=== PATIENT | male | born 1955 | race Caucasian/White ===

== ENCOUNTER 2017-04-15 19:15 | Inpatient (IN) | payer OTHER ==
[2017-04-15] MEDS ORDERED: LIPITOR40 M1 PO (19:32)
[2017-04-15] MEDS ORDERED: LISINOPRIL40 M1 PO (19:33)
[2017-04-15] MEDS ORDERED: GLUCOPHAGE1000 M1 PO (19:34)
[2017-04-15] MEDS ORDERED: HYDROCHLOROTHIA25 M1 PO (19:34)
[2017-04-15] MEDS ORDERED: COREG25 M1 PO (19:35)
[2017-04-15] MEDS ORDERED: GLIPIZIDE5 M2 PO (19:35)
[2017-04-15 20:07] LABS: BASO % 0.4 % (0-2); EOS % 1.4 % (0-7); EOSINOPHIL ABSOLUTE COUNT 0.1 tho/cmm (0.0-0.7); HCT-HEMATOCRIT 44.7 % (36.0-53.5); HGB-HEMOGLOBIN 16.1 gm/dl (13.5-17.0); IMMATURE GRANULOCYTES ABSOLUTE 0.02 tho/cmm (0-0.03); IMMATURE GRANULOCYTES PERCENT 0.2 % (0-0.3); LYMPH ABSOLUTE COUNT 2.8 tho/cmm (0.8-4.5); MCH (MEAN CORPUSCULAR HGB) 30.3 pg (28.0-32.0); MCV (MEAN CELL VOLUME) 84.2 fl (82.0-96.0); MEAN PLATELET VOLUME 10.1 cmc (9.4-12.4); MONO % 7.8 % (0-12); MONOCYTE ABSOLUTE COUNT 0.8 tho/cmm (0.0-1.2); NEUTROPHIL ABSOLUTE COUNT 5.9 tho/cmm (1.6-8.0); NEUTROPHIL-AUTOMATED 5.9 tho/cmm (1.6-8.0); NEUTROPHILS % 61.2 % (40-80); PLATELET COUNT 269 tho/cmm (150-450); RED BLOOD COUNT 5.31 mil/cmm (4.40-5.70); RED CELL DISTRIBUTION WIDTH 13.4 % (12.4-16.4); WHITE BLOOD COUNT 9.7 tho/cmm (4.0-10.0)
[2017-04-15 20:09] LABS: INR 0.8 INR (0.9-1.1); PROTHROMBIN TIME 9.7 SECONDS (9.0-13.6)
[2017-04-15 20:18] LABS: BLOOD UREA NITROGEN 32 mg/dl (6-24); CARBON DIOXIDE-VENOUS 21 mmol/L (22-32); CHLORIDE 95 mmol/l (96-110); CREATININE 1.52 mg/dl (0.60-1.30); SODIUM 132 mmol/L (135-145); eGFR VALUE FOR BLACK 56 mL/Min
[2017-04-15] MEDS ORDERED: MULTIVITAMINS1 EAC6 PO (20:19)
[2017-04-15 20:24] LABS: ANION GAP 21 mmol/L (0-20); POTASSIUM 4.7 mmol/L (3.7-5.1)
[2017-04-15 20:25] LABS: GLUCOSE 512 mg/dL (70-110)
[2017-04-15 23:01] LABS: URINE TOTAL PROTEIN-RANDOM 10.5 mg/dl (<11.8)
[2017-04-15 23:54] LABS: URINE PRT/CR RATIO 0.24 Ratio (0.0-0.20)
[2017-04-16 03:48] LABS: INR 0.9 INR (0.9-1.1); PROTHROMBIN TIME 10.6 SECONDS (9.0-13.6)
[2017-04-16 04:00] LABS: ALB/GLOB RATIO 1.1 (0.8-2.0); ALBUMIN 3.7 g/dl (3.5-5.0); ALKALINE PHOSPHATASE 92 U/L (33-138); ALT/SGPT 37 U/L (12-78); AST/SGOT 20 U/L (10-40); BILIRUBIN,TOTAL 0.3 mg/dl (0.0-1.5); BLOOD UREA NITROGEN 24 mg/dl (6-24); CALCIUM 8.6 mg/dl (8.5-10.5); CARBON DIOXIDE-VENOUS 25 mmol/L (22-32); CHLORIDE 108 mmol/l (96-110); CREATININE 0.87 mg/dl (0.60-1.30); MAGNESIUM 2.1 mg/dl (1.8-2.6); PHOSPHOROUS 3.1 mg/dl (2.5-4.9); SODIUM 143 mmol/L (135-145); eGFR VALUE FOR BLACK >90 mL/Min
[2017-04-16 04:07] LABS: ANION GAP 13 mmol/L (0-20); GLUCOSE 155 mg/dL (70-110)
[2017-04-16 04:08] LABS: POTASSIUM 3.2 mmol/L (3.7-5.1)
[2017-04-16 04:45] LABS: PARTIAL THROMBOPLASTIN TIME 40 SECONDS (22-36)
[2017-04-16 09:00] LABS: ANION GAP 12 mmol/L (0-20); BLOOD UREA NITROGEN 20 mg/dl (6-24); CARBON DIOXIDE-VENOUS 26 mmol/L (22-32); CHLORIDE 107 mmol/l (96-110); CREATININE 0.91 mg/dl (0.60-1.30); GLUCOSE 115 mg/dL (70-110); POTASSIUM 3.4 mmol/L (3.7-5.1); SODIUM 142 mmol/L (135-145); eGFR VALUE FOR BLACK >90 mL/Min
[2017-04-16 10:38] LABS: BASO % 0.5 % (0-2); EOS % 3.5 % (0-7); EOSINOPHIL ABSOLUTE COUNT 0.3 tho/cmm (0.0-0.7); HCT-HEMATOCRIT 39.7 % (36.0-53.5); HGB-HEMOGLOBIN 13.9 gm/dl (13.5-17.0); IMMATURE GRANULOCYTES ABSOLUTE 0.03 tho/cmm (0-0.03); IMMATURE GRANULOCYTES PERCENT 0.4 % (0-0.3); LYMPH % 48.8 % (20-45); LYMPH ABSOLUTE COUNT 3.8 tho/cmm (0.8-4.5); MCV (MEAN CELL VOLUME) 85.6 fl (82.0-96.0); MEAN PLATELET VOLUME 10.1 cmc (9.4-12.4); MONO % 8.4 % (0-12); MONOCYTE ABSOLUTE COUNT 0.7 tho/cmm (0.0-1.2); NEUTROPHILS % 38.4 % (40-80); PLATELET COUNT 223 tho/cmm (150-450); RED BLOOD COUNT 4.64 mil/cmm (4.40-5.70); RED CELL DISTRIBUTION WIDTH 13.8 % (12.4-16.4); WHITE BLOOD COUNT 7.7 tho/cmm (4.0-10.0)
[2017-04-16 11:24] LABS: OSMOLALITY 294 mOsm/kg (275-295)
[2017-04-16 11:30] LABS: BLOOD UREA NITROGEN 19 mg/dl (6-24); CALCIUM 8.3 mg/dl (8.5-10.5); CARBON DIOXIDE-VENOUS 26 mmol/L (22-32); CHLORIDE 105 mmol/l (96-110); CREATININE 0.94 mg/dl (0.60-1.30); PHOSPHOROUS 3.1 mg/dl (2.5-4.9); SODIUM 140 mmol/L (135-145); eGFR VALUE FOR BLACK >90 mL/Min
[2017-04-16 11:43] LABS: ANION GAP 13 mmol/L (0-20); GLUCOSE 207 mg/dL (70-110); MAGNESIUM 2.1 mg/dl (1.8-2.6); POTASSIUM 4.2 mmol/L (3.7-5.1)
--- NOTE | 2017-04-16 11:52 | NUR ---
PATIENT C/O N/T IN LEFT FOOT. ABLE TO DOPPLER DORSAL PULSE. PEDAL PULSE NOT ABLE TO DOPPLER. KNITTING TESTER NOTIFIED.
--- NOTE | 2017-04-16 13:20 | NUR ---
PATIENT DOWN TO IR FOR AORTOGRAM
--- NOTE | 2017-04-16 16:46 | NUR ---
RADIOLOGY NURSE CALLED THIS RN, THEY ARE WAITING FOR PHARMACY TO SEND TPA BACK UP TO PROCEDURE ROOM AND THEN THE PATIETN WILL BE BACK UP TO FLOOR
--- NOTE | 2017-04-16 16:46 | NUR ---
CALLED FREELANCE OPERATOR. PATIENT IS STILL IN PROCEDURE. THEY ARE TREATING WITH HEPARIN AND TPA, PATIENT WILL COME BACK TO FLOOR WITH HEPARIN AND TPA
--- NOTE | 2017-04-16 17:29 | NUR ---
TALKED WITH BUOY TENDER, PATIENT NEEDS TO BE IN CCU PER PROTOCOL
[2017-04-16 18:07] LABS: ANION GAP 14 mmol/L (0-20); BLOOD UREA NITROGEN 14 mg/dl (6-24); CALCIUM 7.8 mg/dl (8.5-10.5); CARBON DIOXIDE-VENOUS 23 mmol/L (22-32); CHLORIDE 111 mmol/l (96-110); CREATININE 0.77 mg/dl (0.60-1.30); GLUCOSE 257 mg/dL (70-110); POTASSIUM 4.5 mmol/L (3.7-5.1); SODIUM 143 mmol/L (135-145); eGFR VALUE FOR BLACK >90 mL/Min
[2017-04-16 20:53] LABS: ANION GAP 13 mmol/L (0-20); BLOOD UREA NITROGEN 15 mg/dl (6-24); CALCIUM 7.7 mg/dl (8.5-10.5); CARBON DIOXIDE-VENOUS 24 mmol/L (22-32); CHLORIDE 108 mmol/l (96-110); GLUCOSE 290 mg/dL (70-110); SODIUM 141 mmol/L (135-145); eGFR VALUE FOR BLACK >90 mL/Min
[2017-04-16 20:55] LABS: POTASSIUM 4.2 mmol/L (3.7-5.1)
[2017-04-17 00:41] LABS: BLOOD UREA NITROGEN 14 mg/dl (6-24); CARBON DIOXIDE-VENOUS 27 mmol/L (22-32); CHLORIDE 105 mmol/l (96-110); CREATININE 1.04 mg/dl (0.60-1.30); GLUCOSE 234 mg/dL (70-110); PHOSPHOROUS 2.6 mg/dl (2.5-4.9); SODIUM 139 mmol/L (135-145); eGFR VALUE FOR BLACK 89 mL/Min
[2017-04-17 00:45] LABS: ANION GAP 11 mmol/L (0-20)
[2017-04-17 00:46] LABS: POTASSIUM 4.3 mmol/L (3.7-5.1)
[2017-04-17 03:45] LABS: ANION GAP 13 mmol/L (0-20); BLOOD UREA NITROGEN 11 mg/dl (6-24); CALCIUM 7.9 mg/dl (8.5-10.5); CARBON DIOXIDE-VENOUS 24 mmol/L (22-32); CHLORIDE 105 mmol/l (96-110); CREATININE 0.88 mg/dl (0.60-1.30); GLUCOSE 232 mg/dL (70-110); POTASSIUM 4.1 mmol/L (3.7-5.1); SODIUM 138 mmol/L (135-145); eGFR VALUE FOR BLACK >90 mL/Min
[2017-04-17 04:02] LABS: BASO % 0.2 % (0-2); EOS % 2.4 % (0-7); EOSINOPHIL ABSOLUTE COUNT 0.2 tho/cmm (0.0-0.7); HCT-HEMATOCRIT 40.5 % (36.0-53.5); HGB-HEMOGLOBIN 13.9 gm/dl (13.5-17.0); IMMATURE GRANULOCYTES ABSOLUTE 0.02 tho/cmm (0-0.03); IMMATURE GRANULOCYTES PERCENT 0.2 % (0-0.3); LYMPH % 25.2 % (20-45); LYMPH ABSOLUTE COUNT 2.3 tho/cmm (0.8-4.5); MCH (MEAN CORPUSCULAR HGB) 29.7 pg (28.0-32.0); MCHC MEAN CORPUSCULAR HGB CONC 34.3 % (32.0-36.0); MCV (MEAN CELL VOLUME) 86.5 fl (82.0-96.0); MEAN PLATELET VOLUME 10.2 cmc (9.4-12.4); MONO % 8.4 % (0-12); MONOCYTE ABSOLUTE COUNT 0.8 tho/cmm (0.0-1.2); NEUTROPHIL ABSOLUTE COUNT 5.7 tho/cmm (1.6-8.0); NEUTROPHIL-AUTOMATED 5.7 tho/cmm (1.6-8.0); NEUTROPHILS % 63.6 % (40-80); PLATELET COUNT 195 tho/cmm (150-450); RED BLOOD COUNT 4.68 mil/cmm (4.40-5.70)
[2017-04-17 12:31] LABS: PHOSPHOROUS 2.3 mg/dl (2.5-4.9)
[2017-04-17 12:46] LABS: MAGNESIUM 2.2 mg/dl (1.8-2.6)
[2017-04-18 01:18] LABS: MAGNESIUM 2.1 mg/dl (1.8-2.6); PHOSPHOROUS 2.2 mg/dl (2.5-4.9)
[2017-04-18 04:05] LABS: BASO % 0.2 % (0-2); EOS % 1.4 % (0-7); EOSINOPHIL ABSOLUTE COUNT 0.2 tho/cmm (0.0-0.7); HCT-HEMATOCRIT 41.1 % (36.0-53.5); HGB-HEMOGLOBIN 14.2 gm/dl (13.5-17.0); IMMATURE GRANULOCYTES ABSOLUTE 0.03 tho/cmm (0-0.03); IMMATURE GRANULOCYTES PERCENT 0.3 % (0-0.3); LYMPH % 20.9 % (20-45); LYMPH ABSOLUTE COUNT 2.2 tho/cmm (0.8-4.5); MCHC MEAN CORPUSCULAR HGB CONC 34.5 % (32.0-36.0); MCV (MEAN CELL VOLUME) 86.9 fl (82.0-96.0); MEAN PLATELET VOLUME 9.3 cmc (9.4-12.4); MONO % 10.7 % (0-12); MONOCYTE ABSOLUTE COUNT 1.1 tho/cmm (0.0-1.2); NEUTROPHIL ABSOLUTE COUNT 7.1 tho/cmm (1.6-8.0); NEUTROPHIL-AUTOMATED 7.1 tho/cmm (1.6-8.0); NEUTROPHILS % 66.5 % (40-80); PLATELET COUNT 181 tho/cmm (150-450); RED BLOOD COUNT 4.73 mil/cmm (4.40-5.70); RED CELL DISTRIBUTION WIDTH 13.7 % (12.4-16.4); WHITE BLOOD COUNT 10.7 tho/cmm (4.0-10.0)
[2017-04-18] MEDS ORDERED: PLAVIX75 M1 PO (12:48)
[2017-04-18] MEDS ORDERED: NORCO 5-325 TA1 EACH PO (12:48)
[2017-07-02] MEDS ORDERED: VITAMIN C1000 M1 PO (13:04)
[2017-07-02] MEDS ORDERED: ASPIRIN81 M1 PO (13:46)
[2017-07-02] MEDS ORDERED: PLAVIX75 M1 PO (13:46)
== END 2017-04-18 14:50 | DRG 253 ==
LOC: EDMED 19:15 → EMR2 21:19 → PCUA 04-16 00:47 → CCU 04-16 18:15
PROVIDERS: Emergency Medicine; Family Medicine; Radiology Diagnostic Radiology; ADMIT Family Medicine
PROC: 047N3Z1 Dilation of Left Popliteal Artery using Drug-Coated Balloon, Percutaneous Approach (ICD-10-PCS; principal; 2017-04-17)
PROC: 047L3Z1 Dilation of Left Femoral Artery using Drug-Coated Balloon, Percutaneous Approach (ICD-10-PCS; 2017-04-17)
PROC: 3E05317 Introduction of Other Thrombolytic into Peripheral Artery, Percutaneous Approach (ICD-10-PCS; 2017-04-17)
DX: I70.212 Atherosclerosis of native arteries of extremities with intermittent claudication, left leg (principal); E87.2 Acidosis; N17.9 Acute kidney failure, unspecified; E11.65 Type 2 diabetes mellitus with hyperglycemia; E87.1 Hypo-osmolality and hyponatremia; I10 Essential (primary) hypertension; I70.202 Unspecified atherosclerosis of native arteries of extremities, left leg; E78.5 Hyperlipidemia, unspecified; E66.9 Obesity, unspecified
CPT/HCPCS: C1725; C1769; C1876; C1887; C1894; C2623; J1644; J1815; J2250; J2270; J2997; J3010; J3475; J3480; J7030; J7040; J7050; Q9967

== ENCOUNTER 2017-05-09 21:07 | Emergency (ER) | payer OTHER ==
[~2017-05-09 21:07] MED LIST: COREG25 M1 PO; GLIPIZIDE5 M2 PO; GLUCOPHAGE1000 M1 PO; HYDROCHLOROTHIA25 M1 PO; LIPITOR40 M1 PO; LISINOPRIL40 M1 PO; MULTIVITAMINS1 EAC6 PO; NORCO 5-325 TA1 EACH PO; PLAVIX75 M1 PO
[2017-07-02] MEDS ORDERED: VITAMIN C1000 M1 PO (13:04)
[2017-07-02] MEDS ORDERED: ASPIRIN81 M1 PO (13:46)
[2017-07-02] MEDS ORDERED: PLAVIX75 M1 PO (13:46)
== END 2017-05-09 22:51 ==
LOC: EDMED 21:07
DX: R20.0 Anesthesia of skin (principal); E11.9 Type 2 diabetes mellitus without complications; I10 Essential (primary) hypertension; Z79.899 Other long term (current) drug therapy; F17.200 Nicotine dependence, unspecified, uncomplicated